=== PATIENT | male | born 1955 | race Two or more races ===

== ENCOUNTER 2016-10-09 17:32 | Emergency (ER) | payer SELFPAY ==
[~2016-10-09] VITALS: Ht 177.8 cm; Wt 99.8 kg
[2016-10-09 18:02] VITALS: BP 201/101
== END 2016-10-10 02:35 | disposition left against medical advice (07) ==
LOC: ER 17:38
DX: M54.2 Cervicalgia (principal); M54.9 Dorsalgia, unspecified; Z53.21 Procedure and treatment not carried out due to patient leaving prior to being seen by health care provider
CPT/HCPCS: 93005

== ENCOUNTER 2021-10-03 11:20 | Inpatient (IN) | payer OTHER ==
[~2021-10-03] VITALS: Ht 175.3 cm; Wt 97.0 kg
[2021-10-03] MEDS ORDERED: SODIUM CHLORIDE 0.9% 1,000 ML IV ONE (11:45)
[2021-10-03 12:18] LABS: Basophils # (auto) 0 10 ^3/uL (0-0.2); Basophils % (auto) 0.9 % (0.0-2.0); Eosinophils # (auto) 0.2 10 ^3/uL (0-0.8); Eosinophils % (auto) 2.9 % (0.0-7.0); Hematocrit 39.5 % (41.0-53.0); Hemoglobin 12.2 g/dL (13.5-17.5); Lymphocytes # (auto) 0.4 10 ^3/uL (0.4-5.4); Lymphocytes % (auto) 6.9 % (10.0-50.0); Mean Corpuscular Hemoglobin 25.5 pg (28.0-32.0); Mean Corpuscular Hgb Conc. 30.9 g/dL (32.0-36.0); Mean Corpuscular Volume 82.5 fL (80.0-100.0); Monocytes # (auto) 0.7 10 ^3/uL (0-1.3); Monocytes % (auto) 11.3 % (0.0-12.0); Neutrophils # (auto) 4.5 10 ^3/uL (1.6-8.6); Red Blood Cells 4.79 10^6/uL (4.5-5.90); Red Cell Distribution Width 19.3 % (11.8-14.3); White Blood Cell 5.8 10^3/uL (4.4-10.8)
[2021-10-03 12:35] LABS: Albumin 2.8 g/dL (3.4-5.0); Calcium 8.3 mg/dL (8.5-10.1); Potassium 4.2 mmol/L (3.5-5.1)
[2021-10-03 12:40] LABS: BUN/Creatinine Ratio 13.8; Bilirubin, Total 0.6 mg/dL (0.2-1.0); Total Protein 7.6 g/dL (6.4-8.2)
[2021-10-03] MEDS ORDERED: SPIRONOLACTONE 25 MG TAB PO ONE (12:45)
[2021-10-03] MEDS ORDERED: FUROSEMIDE 40 MG/4 ML VIAL IV ONE ×2 (12:45→17:30)
[2021-10-03 14:22] LABS: INR 1.26 (0.9-1.15); Partial Thromboplastin Time 30.7 sec (23.6-33.0)
[2021-10-03] MEDS ORDERED: ACETAMINOPHEN 325 MG TAB PO PRN (17:30)
[2021-10-03] MEDS ORDERED: MORPHINE SULFATE INJECTION 2 MG/ML SYRG IV PRN (17:30)
[2021-10-03] MEDS ORDERED: NITROGLYCERIN 0.4 MG SL TAB SL PRN (17:30)
[2021-10-03] MEDS: FUROSEMIDE 40 MG/4 ML VIAL IV SCH (18:00)
[2021-10-03 18:54] LABS: Urine Bacteria FEW /hpf (None Seen); Urine Blood 3+ /uL (Negative); Urine Mucus FEW (None Seen); Urine Specific Gravity 1.017 (1.001-1.035); Urine WBC 149 /hpf (0 - 3); Urine WBC Clumps PRESENT /hpf (None Seen)
[2021-10-03] MEDS: ENOXAPARIN SOD 40 MG/0.4 ML SYRINGE SC SCH (22:00)
[2021-10-03 23:06] VITALS: BP 131/84
[2021-10-04] VITALS (7 sets, daily range): BP systolic 124–139; BP diastolic 49–84
[2021-10-04] MEDS: FUROSEMIDE 40 MG/4 ML VIAL IV SCH (06:00)
[2021-10-04 07:26] LABS: Potassium 4.5 mmol/L (3.5-5.1)
[2021-10-04 07:34] LABS: Albumin 2.7 g/dL (3.4-5.0); Bilirubin, Total 0.6 mg/dL (0.2-1.0); Calcium 8.4 mg/dL (8.5-10.1); Total Protein 7.2 g/dL (6.4-8.2)
[2021-10-04 07:35] LABS: Basophils # (auto) 0 10 ^3/uL (0-0.2); Eosinophils # (auto) 0.1 10 ^3/uL (0-0.8); Hemoglobin 11.1 g/dL (13.5-17.5); Lymphocytes # (auto) 0.3 10 ^3/uL (0.4-5.4); Monocytes % (auto) 9.7 % (0.0-12.0); Neutrophils % (auto) 83.6 % (37.0-80.0); Nucleated Red Blood Cells % 0.1 %
[2021-10-04 07:37] LABS: Basophils % (auto) 0.3 % (0.0-2.0); Eosinophils % (auto) 1.3 % (0.0-7.0); Hematocrit 36.3 % (41.0-53.0); Lymphocytes % (auto) 5.1 % (10.0-50.0); Mean Corpuscular Hemoglobin 25.3 pg (28.0-32.0); Mean Corpuscular Hgb Conc. 30.7 g/dL (32.0-36.0); Mean Corpuscular Volume 82.5 fL (80.0-100.0); Monocytes # (auto) 0.7 10 ^3/uL (0-1.3); Neutrophils # (auto) 5.6 10 ^3/uL (1.6-8.6); White Blood Cell 6.7 10^3/uL (4.4-10.8)
[2021-10-04] MEDS ORDERED: DEXTROSE (50%) 50ML SYRG IV PRN (08:30)
[2021-10-04] MEDS: METOPROLOL SUCCINATE XL 50 MG TAB PO SCH (10:00)
[2021-10-04] MEDS: ALLOPURINOL 100 MG TAB PO SCH (10:00)
[2021-10-04] MEDS ORDERED: amLODIPine BESYLATE 5 MG TAB PO SCH (10:00)
[2021-10-04] MEDS: ENOXAPARIN SOD 40 MG/0.4 ML SYRINGE SC SCH (10:00)
[2021-10-04] MEDS: InsuLIN REG 1unit/0.01ml Soln (100units/ml) SC SCH ×3 (11:30→22:00)
[2021-10-04] MEDS: ACCU-CHEK COMFORT CURVE STRIP VI SCH ×3 (11:30→22:00)
[2021-10-04] MEDS: FUROSEMIDE 100 MG/10ML VIAL IV SCH ×2 (11:49→18:00)
[2021-10-04] MEDS: HYDROcodone-ACET 5/325MG TAB PO PRN ×2 (18:25→20:04)
[2021-10-04] MEDS: POTASSIUM CHL 10 Meq TABLET PO SCH (22:00)
[2021-10-04] MEDS: ATORVASTATIN 20 MG TAB PO SCH (22:00)
[2021-10-04] MEDS ORDERED: INFLUENZA QUAD 2021-2022 0.5 ML SYRG IM ONE (23:00)
[2021-10-04] MEDS ORDERED: METO-6 PO (23:07)
[2021-10-04] MEDS ORDERED: DORZ2SOL18 EACHEYE (23:07)
[2021-10-04] MEDS ORDERED: HYDR50TA69 PO (23:07)
[2021-10-04] MEDS ORDERED: SODI650T PO (23:07)
[2021-10-04] MEDS ORDERED: TRAM50TA2 PO (23:07)
[2021-10-04] MEDS ORDERED: FURO40TA4 PO (23:07)
[2021-10-04] MEDS ORDERED: CHOL20007 PO (23:07)
[2021-10-04] MEDS ORDERED: ATOR20TA50 PO (23:07)
[2021-10-04] MEDS ORDERED: ASPI1TAB20 PO (23:07)
[2021-10-04] MEDS ORDERED: ALLO100T PO (23:07)
[2021-10-04] MEDS ORDERED: BRIM0.2S17 EACHEYE (23:07)
[2021-10-04] MEDS ORDERED: POM (23:07)
[2021-10-04] MEDS ORDERED: LEVO25TA6 PO (23:07)
[2021-10-04] MEDS ORDERED: PATI1POW PO (23:07)
[2021-10-04] MEDS ORDERED: AMLO-489 PO (23:07)
[2021-10-04] MEDS ORDERED: INSUINJ2 SC (23:07)
[2021-10-05] VITALS: BP 132/43
[2021-10-05 04:00] VITALS: BP 136/70
[2021-10-05] MEDS: HYDROcodone-ACET 5/325MG TAB PO PRN ×3 (05:00→18:58)
[2021-10-05 05:49] LABS: Calcium 8.5 mg/dL (8.5-10.1); Potassium 4.5 mmol/L (3.5-5.1)
[2021-10-05] MEDS: FUROSEMIDE 100 MG/10ML VIAL IV SCH ×4 (06:13→18:00)
[2021-10-05] MEDS: InsuLIN REG 1unit/0.01ml Soln (100units/ml) SC SCH ×4 (07:12→22:00)
[2021-10-05] MEDS: LEVOTHYROXINE SODIUM 25 MCG TAB PO SCH (07:14)
[2021-10-05] MEDS: ACCU-CHEK COMFORT CURVE STRIP VI SCH ×4 (07:15→22:00)
[2021-10-05 08:00] VITALS: BP_SYST 132; BP_DIAS 43; BP_DIAS 68
[2021-10-05] MEDS: ENOXAPARIN SOD 30 MG/0.3 ML SYRINGE SC SCH (10:00)
[2021-10-05] MEDS: POTASSIUM CHL 10 Meq TABLET PO SCH ×2 (10:00→22:00)
[2021-10-05] MEDS: amLODIPine BESYLATE 5 MG TAB PO SCH (10:00)
[2021-10-05] MEDS: METOPROLOL SUCCINATE XL 50 MG TAB PO SCH (10:00)
[2021-10-05] MEDS: ALLOPURINOL 100 MG TAB PO SCH (10:00)
[2021-10-05 13:00] VITALS: BP 139/68
[2021-10-05 16:00] VITALS: BP 122/73
[2021-10-05] MEDS: ATORVASTATIN 20 MG TAB PO SCH (22:00)
[2021-10-06] VITALS (7 sets, daily range): BP systolic 130–154; BP diastolic 43–90
[2021-10-06] MEDS: HYDROcodone-ACET 5/325MG TAB PO PRN ×4 (01:00→20:00)
[2021-10-06] MEDS: FUROSEMIDE 100 MG/10ML VIAL IV SCH ×5 (06:06→23:58)
[2021-10-06] MEDS: BISACODYL 5 MG EC TAB PO PRN (06:07)
[2021-10-06 06:27] LABS: BUN/Creatinine Ratio 18.2; Calcium 8.9 mg/dL (8.5-10.1); Potassium 4.5 mmol/L (3.5-5.1)
[2021-10-06] MEDS: ACCU-CHEK COMFORT CURVE STRIP VI SCH ×4 (06:52→21:52)
[2021-10-06] MEDS: InsuLIN REG 1unit/0.01ml Soln (100units/ml) SC SCH ×4 (06:53→22:08)
[2021-10-06] MEDS: LEVOTHYROXINE SODIUM 25 MCG TAB PO SCH ×2 (06:56)
[2021-10-06] MEDS: POTASSIUM CHL 10 Meq TABLET PO SCH ×2 (09:09→21:52)
[2021-10-06] MEDS: amLODIPine BESYLATE 5 MG TAB PO SCH (09:09)
[2021-10-06] MEDS: ENOXAPARIN SOD 30 MG/0.3 ML SYRINGE SC SCH (09:10)
[2021-10-06] MEDS: ALLOPURINOL 100 MG TAB PO SCH (09:10)
[2021-10-06] MEDS: METOPROLOL SUCCINATE XL 50 MG TAB PO SCH (09:10)
[2021-10-06] MEDS: ATORVASTATIN 20 MG TAB PO SCH (21:52)
[2021-10-07] MEDS: HYDROcodone-ACET 5/325MG TAB PO PRN ×2 (02:07→10:02)
[2021-10-07 05:00] VITALS: BP 140/52
[2021-10-07] MEDS: FUROSEMIDE 100 MG/10ML VIAL IV SCH ×3 (06:10→17:09)
[2021-10-07] MEDS: LEVOTHYROXINE SODIUM 25 MCG TAB PO SCH (06:10)
[2021-10-07] MEDS: ACCU-CHEK COMFORT CURVE STRIP VI SCH ×4 (06:10→22:18)
[2021-10-07] MEDS: InsuLIN REG 1unit/0.01ml Soln (100units/ml) SC SCH ×4 (06:28→22:29)
[2021-10-07 06:45] LABS: Calcium 8.6 mg/dL (8.5-10.1); Potassium 4.3 mmol/L (3.5-5.1)
[2021-10-07 06:47] LABS: BUN/Creatinine Ratio 20.4
[2021-10-07 08:00] VITALS: BP 134/45
[2021-10-07 09:00] VITALS: BP 134/45
[2021-10-07] MEDS: POTASSIUM CHL 10 Meq TABLET PO SCH ×2 (09:58→22:30)
[2021-10-07] MEDS: amLODIPine BESYLATE 5 MG TAB PO SCH (09:58)
[2021-10-07] MEDS: metOLazone 5 MG TAB PO SCH (09:59)
[2021-10-07] MEDS: METOPROLOL SUCCINATE XL 50 MG TAB PO SCH (09:59)
[2021-10-07] MEDS: ALLOPURINOL 100 MG TAB PO SCH (09:59)
[2021-10-07] MEDS: ENOXAPARIN SOD 30 MG/0.3 ML SYRINGE SC SCH (09:59)
[2021-10-07 13:00] VITALS: BP 118/79
[2021-10-07] MEDS: OXYCODONE W/ ACETAMINOPHEN 5/325MG TABLET PO PRN ×2 (15:44→22:31)
[2021-10-07 22:00] VITALS: BP 139/63
[2021-10-07] MEDS: ATORVASTATIN 20 MG TAB PO SCH (22:30)
[2021-10-07] MEDS: SENNA 8.6 MG TAB PO SCH (22:30)
[2021-10-08] MEDS: FUROSEMIDE 100 MG/10ML VIAL IV SCH ×4 (00:19→17:02)
[2021-10-08] MEDS: OXYCODONE W/ ACETAMINOPHEN 5/325MG TABLET PO PRN ×3 (02:45→22:16)
[2021-10-08 05:46] LABS: Calcium 8.8 mg/dL (8.5-10.1)
[2021-10-08 05:49] LABS: BUN/Creatinine Ratio 21.7; Magnesium 2.4 mg/dL (1.6-2.6)
[2021-10-08 06:16] VITALS: BP 137/74
[2021-10-08] MEDS: ACCU-CHEK COMFORT CURVE STRIP VI SCH ×4 (06:26→22:05)
[2021-10-08] MEDS: InsuLIN REG 1unit/0.01ml Soln (100units/ml) SC SCH ×4 (06:26→22:12)
[2021-10-08] MEDS: LEVOTHYROXINE SODIUM 25 MCG TAB PO SCH (06:30)
[2021-10-08 08:00] VITALS: BP 136/62
[2021-10-08] MEDS: amLODIPine BESYLATE 5 MG TAB PO SCH (09:49)
[2021-10-08] MEDS: POTASSIUM CHL 10 Meq TABLET PO SCH ×2 (09:49→22:17)
[2021-10-08] MEDS: METOPROLOL SUCCINATE XL 50 MG TAB PO SCH (09:49)
[2021-10-08] MEDS: ALLOPURINOL 100 MG TAB PO SCH (09:50)
[2021-10-08] MEDS: ENOXAPARIN SOD 30 MG/0.3 ML SYRINGE SC SCH (09:50)
[2021-10-08] MEDS: metOLazone 5 MG TAB PO SCH (09:50)
[2021-10-08 16:00] VITALS: BP 157/75
[2021-10-08 21:53] VITALS: BP 132/66
[2021-10-08] MEDS: SENNA 8.6 MG TAB PO SCH (22:15)
[2021-10-08] MEDS: ATORVASTATIN 20 MG TAB PO SCH (22:16)
[2021-10-08] MEDS ORDERED: diphenhdrAMINE HCL 50 MG/1 ML VL IV PRN (23:45)
[2021-10-09] MEDS: FUROSEMIDE 100 MG/10ML VIAL IV SCH ×4 (00:25→18:20)
[2021-10-09 05:05] VITALS: BP 130/78
[2021-10-09 06:00] VITALS: BP 130/78
[2021-10-09] MEDS: ACCU-CHEK COMFORT CURVE STRIP VI SCH ×4 (06:34→23:00)
[2021-10-09] MEDS: InsuLIN REG 1unit/0.01ml Soln (100units/ml) SC SCH ×4 (06:34→23:03)
[2021-10-09] MEDS: LEVOTHYROXINE SODIUM 25 MCG TAB PO SCH (06:36)
[2021-10-09 08:00] VITALS: BP 145/57
[2021-10-09] MEDS: ENOXAPARIN SOD 30 MG/0.3 ML SYRINGE SC SCH (10:06)
[2021-10-09] MEDS: amLODIPine BESYLATE 5 MG TAB PO SCH (10:08)
[2021-10-09] MEDS: POTASSIUM CHL 10 Meq TABLET PO SCH ×2 (10:08→22:59)
[2021-10-09] MEDS: ALLOPURINOL 100 MG TAB PO SCH (10:09)
[2021-10-09] MEDS: METOPROLOL SUCCINATE XL 50 MG TAB PO SCH (10:09)
[2021-10-09] MEDS: metOLazone 5 MG TAB PO SCH (11:28)
[2021-10-09 12:00] VITALS: BP 148/86
[2021-10-09 16:00] VITALS: BP 148/63
[2021-10-09 19:34] LABS: Basophils # (auto) 0 10 ^3/uL (0-0.2); Basophils % (auto) 0.2 % (0.0-2.0); Eosinophils # (auto) 0.1 10 ^3/uL (0-0.8); Eosinophils % (auto) 2.1 % (0.0-7.0); Hematocrit 36.5 % (41.0-53.0); Hemoglobin 11.6 g/dL (13.5-17.5); Lymphocytes # (auto) 0.2 10 ^3/uL (0.4-5.4); Lymphocytes % (auto) 3.8 % (10.0-50.0); Mean Corpuscular Hemoglobin 25.4 pg (28.0-32.0); Mean Corpuscular Hgb Conc. 31.8 g/dL (32.0-36.0); Mean Corpuscular Volume 79.8 fL (80.0-100.0); Monocytes # (auto) 0.5 10 ^3/uL (0-1.3); Monocytes % (auto) 9.1 % (0.0-12.0); Neutrophils # (auto) 4.3 10 ^3/uL (1.6-8.6); Neutrophils % (auto) 84.8 % (37.0-80.0); Red Blood Cells 4.57 10^6/uL (4.5-5.90); Red Cell Distribution Width 19.3 % (11.8-14.3)
[2021-10-09 19:52] LABS: Anion Gap 7 (5-15); BUN/Creatinine Ratio 23.8; Blood Urea Nitrogen 58 mg/dL (7-18); Calcium 8.7 mg/dL (8.5-10.1); Carbon Dioxide 30 mmol/L (21-32); Chloride 94 mmol/L (98-107); GFR African American 34 mL/min; GFR Non-African American 28 mL/min; Glucose 199 mg/dL (74-106); Potassium 3.9 mmol/L (3.5-5.1); Sodium 131 mmol/L (136-145)
[2021-10-09 22:00] VITALS: BP 148/56
[2021-10-09] MEDS: SENNA 8.6 MG TAB PO SCH (22:59)
[2021-10-09] MEDS: ATORVASTATIN 20 MG TAB PO SCH (22:59)
[2021-10-09] MEDS: THROAT LOZENGES(CEPASTAT) MT PRN (23:00)
[2021-10-09] MEDS: OXYCODONE W/ ACETAMINOPHEN 5/325MG TABLET PO PRN (23:09)
[2021-10-10] MEDS: FUROSEMIDE 100 MG/10ML VIAL IV SCH ×3 (00:13→19:14)
[2021-10-10] MEDS: THROAT LOZENGES(CEPASTAT) MT PRN (02:31)
[2021-10-10 06:00] VITALS: BP 140/53
[2021-10-10] MEDS: ACCU-CHEK COMFORT CURVE STRIP VI SCH ×4 (06:44→21:56)
[2021-10-10] MEDS: InsuLIN REG 1unit/0.01ml Soln (100units/ml) SC SCH ×4 (06:49→22:34)
[2021-10-10] MEDS: LEVOTHYROXINE SODIUM 25 MCG TAB PO SCH (06:52)
[2021-10-10 08:00] VITALS: BP 139/43
[2021-10-10] MEDS: metOLazone 5 MG TAB PO SCH (10:00)
[2021-10-10] MEDS: ALLOPURINOL 100 MG TAB PO SCH (10:46)
[2021-10-10] MEDS: METOPROLOL SUCCINATE XL 50 MG TAB PO SCH (10:49)
[2021-10-10] MEDS: amLODIPine BESYLATE 5 MG TAB PO SCH (10:49)
[2021-10-10] MEDS: POTASSIUM CHL 10 Meq TABLET PO SCH ×2 (10:50→21:55)
[2021-10-10] MEDS: ENOXAPARIN SOD 30 MG/0.3 ML SYRINGE SC SCH (10:51)
[2021-10-10 13:00] VITALS: BP 142/55
[2021-10-10] MEDS ORDERED: METO5TAB5 PO (13:45)
[2021-10-10] MEDS ORDERED: POTA-167 PO (13:45)
[2021-10-10] MEDS ORDERED: AML5T PO (13:45)
[2021-10-10] MEDS ORDERED: FURO40TA4 PO (13:45)
[2021-10-10 16:00] VITALS: BP 138/59
[2021-10-10] MEDS: SENNA 8.6 MG TAB PO SCH (21:56)
[2021-10-10] MEDS: ATORVASTATIN 20 MG TAB PO SCH (21:56)
[2021-10-10 22:00] VITALS: BP 147/64
[2021-10-11] VITALS (7 sets, daily range): BP systolic 129–152; BP diastolic 46–57
[2021-10-11 02:38] LABS: Protein, Urine 70.4 mg/dL (0.0-11.9)
[2021-10-11] MEDS: FUROSEMIDE 100 MG/10ML VIAL IV SCH ×2 (05:14→18:29)
[2021-10-11] MEDS: LEVOTHYROXINE SODIUM 25 MCG TAB PO SCH (06:14)
[2021-10-11] MEDS: ACCU-CHEK COMFORT CURVE STRIP VI SCH ×4 (06:14→21:55)
[2021-10-11] MEDS: InsuLIN REG 1unit/0.01ml Soln (100units/ml) SC SCH ×4 (06:17→22:02)
[2021-10-11] MEDS: POTASSIUM CHL 10 Meq TABLET PO SCH ×2 (10:00→21:54)
[2021-10-11] MEDS: ENOXAPARIN SOD 30 MG/0.3 ML SYRINGE SC SCH (10:00)
[2021-10-11] MEDS: metOLazone 5 MG TAB PO SCH (10:00)
[2021-10-11] MEDS: METOPROLOL SUCCINATE XL 50 MG TAB PO SCH (10:00)
[2021-10-11] MEDS: ALLOPURINOL 100 MG TAB PO SCH (10:00)
[2021-10-11] MEDS: amLODIPine BESYLATE 5 MG TAB PO SCH (10:00)
[2021-10-11] MEDS: THROAT LOZENGES(CEPASTAT) MT PRN (18:35)
[2021-10-11 19:58] LABS: INR 1.17 (0.9-1.15); Partial Thromboplastin Time 31.8 sec (23.6-33.0)
[2021-10-11] MEDS: ATORVASTATIN 20 MG TAB PO SCH (21:55)
[2021-10-11] MEDS: SENNA 8.6 MG TAB PO SCH (21:55)
[2021-10-11] MEDS: OXYCODONE W/ ACETAMINOPHEN 5/325MG TABLET PO PRN (22:47)
[2021-10-12] VITALS (8 sets, daily range): BP systolic 125–142; BP diastolic 61–87
[2021-10-12] MEDS: ACCU-CHEK COMFORT CURVE STRIP VI SCH ×4 (06:06→21:42)
[2021-10-12] MEDS: InsuLIN REG 1unit/0.01ml Soln (100units/ml) SC SCH ×4 (06:07→21:57)
[2021-10-12] MEDS: FUROSEMIDE 100 MG/10ML VIAL IV SCH ×2 (06:33→18:40)
[2021-10-12] MEDS: LEVOTHYROXINE SODIUM 25 MCG TAB PO SCH (06:33)
[2021-10-12] MEDS: ENOXAPARIN SOD 30 MG/0.3 ML SYRINGE SC SCH (10:00)
[2021-10-12] MEDS: OXYCODONE W/ ACETAMINOPHEN 5/325MG TABLET PO PRN ×4 (10:53→22:02)
[2021-10-12] MEDS: metOLazone 5 MG TAB PO SCH (10:55)
[2021-10-12] MEDS: POTASSIUM CHL 10 Meq TABLET PO SCH ×2 (10:55→21:42)
[2021-10-12] MEDS: METOPROLOL SUCCINATE XL 50 MG TAB PO SCH (10:56)
[2021-10-12] MEDS: amLODIPine BESYLATE 5 MG TAB PO SCH (10:57)
[2021-10-12] MEDS: ALLOPURINOL 100 MG TAB PO SCH (10:58)
[2021-10-12] MEDS ORDERED: ALBUTEROL SULF 2.5 MG/0.5ML(0.5%) NEB SOLN NEB ONE (12:30)
[2021-10-12] MEDS ORDERED: IPRATROPIUM BROM 0.5 MG/2.5ML INH SOL NEB ONE (12:30)
[2021-10-12 15:40] LABS: Basophils # (auto) 0 10 ^3/uL (0-0.2); Eosinophils # (auto) 0.3 10 ^3/uL (0-0.8); Hematocrit 33.8 % (41.0-53.0); Monocytes # (auto) 0.5 10 ^3/uL (0-1.3); Red Cell Distribution Width 18.9 % (11.8-14.3); White Blood Cell 5.2 10^3/uL (4.4-10.8)
[2021-10-12 15:42] LABS: Basophils % (auto) 0.6 % (0.0-2.0); Eosinophils % (auto) 6.7 % (0.0-7.0); Hemoglobin 10.9 g/dL (13.5-17.5); Lymphocytes # (auto) 0.3 10 ^3/uL (0.4-5.4); Lymphocytes % (auto) 6.4 % (10.0-50.0); Mean Corpuscular Hemoglobin 25.9 pg (28.0-32.0); Mean Corpuscular Hgb Conc. 32.1 g/dL (32.0-36.0); Mean Corpuscular Volume 80.5 fL (80.0-100.0); Monocytes % (auto) 9.6 % (0.0-12.0); Neutrophils % (auto) 76.7 % (37.0-80.0); Nucleated Red Blood Cells % 0.1 %
[2021-10-12 15:51] LABS: BUN/Creatinine Ratio 29.2; Calcium 8.8 mg/dL (8.5-10.1); Potassium 3.8 mmol/L (3.5-5.1)
[2021-10-12] MEDS: ATORVASTATIN 20 MG TAB PO SCH (21:42)
[2021-10-12] MEDS: SENNA 8.6 MG TAB PO SCH (21:42)
[2021-10-13 06:00] VITALS: BP 116/53
[2021-10-13] MEDS: LEVOTHYROXINE SODIUM 25 MCG TAB PO SCH (06:20)
[2021-10-13] MEDS: ACCU-CHEK COMFORT CURVE STRIP VI SCH ×4 (06:20→21:46)
[2021-10-13] MEDS: FUROSEMIDE 100 MG/10ML VIAL IV SCH (06:38)
[2021-10-13] MEDS: InsuLIN REG 1unit/0.01ml Soln (100units/ml) SC SCH ×4 (06:38→21:44)
[2021-10-13 08:00] VITALS: BP 143/55
[2021-10-13] MEDS: POTASSIUM CHL 10 Meq TABLET PO SCH ×2 (08:51→21:39)
[2021-10-13] MEDS: METOPROLOL SUCCINATE XL 50 MG TAB PO SCH (08:52)
[2021-10-13] MEDS: amLODIPine BESYLATE 5 MG TAB PO SCH (08:52)
[2021-10-13] MEDS: ALLOPURINOL 100 MG TAB PO SCH (08:52)
[2021-10-13] MEDS: metOLazone 5 MG TAB PO SCH (08:53)
[2021-10-13] MEDS: ENOXAPARIN SOD 30 MG/0.3 ML SYRINGE SC SCH (08:53)
[2021-10-13] MEDS: THROAT LOZENGES(CEPASTAT) MT PRN (10:31)
[2021-10-13 12:48] VITALS: BP 132/51
[2021-10-13 16:23] VITALS: BP 139/63
[2021-10-13] MEDS: FUROSEMIDE 40 MG TAB PO SCH (17:35)
[2021-10-13] MEDS: OXYCODONE W/ ACETAMINOPHEN 5/325MG TABLET PO PRN (17:42)
[2021-10-13 20:10] LABS: Basophils # (auto) 0 10 ^3/uL (0-0.2); Basophils % (auto) 0.7 % (0.0-2.0); Eosinophils # (auto) 0.5 10 ^3/uL (0-0.8); Eosinophils % (auto) 8.7 % (0.0-7.0); Hematocrit 32.4 % (41.0-53.0); Hemoglobin 10.4 g/dL (13.5-17.5); Lymphocytes # (auto) 0.4 10 ^3/uL (0.4-5.4); Lymphocytes % (auto) 6.9 % (10.0-50.0); Mean Corpuscular Hemoglobin 25.7 pg (28.0-32.0); Mean Corpuscular Hgb Conc. 32.1 g/dL (32.0-36.0); Mean Corpuscular Volume 79.9 fL (80.0-100.0); Monocytes # (auto) 0.5 10 ^3/uL (0-1.3); Monocytes % (auto) 8.4 % (0.0-12.0); Neutrophils # (auto) 4.3 10 ^3/uL (1.6-8.6); Neutrophils % (auto) 75.3 % (37.0-80.0); Red Blood Cells 4.06 10^6/uL (4.5-5.90); Red Cell Distribution Width 19.2 % (11.8-14.3); White Blood Cell 5.6 10^3/uL (4.4-10.8)
[2021-10-13 20:23] LABS: BUN/Creatinine Ratio 32.5; Calcium 8.7 mg/dL (8.5-10.1)
[2021-10-13] MEDS: ATORVASTATIN 20 MG TAB PO SCH (21:40)
[2021-10-13] MEDS: SENNA 8.6 MG TAB PO SCH (21:41)
[2021-10-13 22:00] VITALS: BP 134/50
[2021-10-14 05:50] VITALS: BP 137/65
[2021-10-14 06:05] LABS: Basophils # (auto) 0 10 ^3/uL (0-0.2); Basophils % (auto) 0.5 % (0.0-2.0); Hemoglobin 10.3 g/dL (13.5-17.5)
[2021-10-14 06:07] LABS: Eosinophils # (auto) 0.6 10 ^3/uL (0-0.8); Eosinophils % (auto) 9.8 % (0.0-7.0); Hematocrit 31.8 % (41.0-53.0); Lymphocytes # (auto) 0.5 10 ^3/uL (0.4-5.4); Lymphocytes % (auto) 8.4 % (10.0-50.0); Mean Corpuscular Hgb Conc. 32.5 g/dL (32.0-36.0); Mean Corpuscular Volume 80.1 fL (80.0-100.0); Monocytes # (auto) 0.5 10 ^3/uL (0-1.3); Monocytes % (auto) 9.4 % (0.0-12.0); Neutrophils # (auto) 4.1 10 ^3/uL (1.6-8.6); Neutrophils % (auto) 71.9 % (37.0-80.0); Red Blood Cells 3.96 10^6/uL (4.5-5.90); Red Cell Distribution Width 19.2 % (11.8-14.3); White Blood Cell 5.6 10^3/uL (4.4-10.8)
[2021-10-14 06:34] LABS: Calcium 8.8 mg/dL (8.5-10.1); Potassium 3.3 mmol/L (3.5-5.1)
[2021-10-14 06:36] LABS: BUN/Creatinine Ratio 34.4
[2021-10-14] MEDS: OXYCODONE W/ ACETAMINOPHEN 5/325MG TABLET PO PRN ×2 (06:48→12:51)
[2021-10-14] MEDS: FUROSEMIDE 40 MG TAB PO SCH ×2 (06:49→18:09)
[2021-10-14] MEDS: LEVOTHYROXINE SODIUM 25 MCG TAB PO SCH (06:50)
[2021-10-14] MEDS: InsuLIN REG 1unit/0.01ml Soln (100units/ml) SC SCH ×4 (06:53→22:37)
[2021-10-14] MEDS: ACCU-CHEK COMFORT CURVE STRIP VI SCH ×4 (06:54→22:38)
[2021-10-14] MEDS ORDERED: methylPREDNISolone SOD SUCC 125 MG/2 ML VL IV ONE (07:30)
[2021-10-14] MEDS ORDERED: HEPARIN SODIUM (PORCINE) 5000 UNITS/ML 1ML VIAL IV ONE (07:30)
[2021-10-14 08:00] VITALS: BP 134/71
[2021-10-14] MEDS: POTASSIUM CHL 10MEQ/50ML 50 ML IV SCH ×2 (08:16→10:20)
[2021-10-14] MEDS ORDERED: HEPARIN SODIUM (PORCINE) 5000 UNITS/ML 1ML VIAL SC SCH (10:00)
[2021-10-14] MEDS: amLODIPine BESYLATE 5 MG TAB PO SCH (10:20)
[2021-10-14] MEDS: POTASSIUM CHL 10 Meq TABLET PO SCH ×2 (10:20→22:34)
[2021-10-14] MEDS: METOPROLOL SUCCINATE XL 50 MG TAB PO SCH (10:21)
[2021-10-14] MEDS: ALLOPURINOL 100 MG TAB PO SCH (10:21)
[2021-10-14] MEDS: metOLazone 5 MG TAB PO SCH (10:21)
[2021-10-14] MEDS ORDERED: methylPREDNISolone SOD SUCC 40 MG/ML VL IV SCH (14:00)
[2021-10-14 16:00] VITALS: BP 143/56
[2021-10-14] MEDS ORDERED: POTASSIUM EFFERVESENT TAB 25 MEQ PO ONE (16:45)
[2021-10-14] MEDS: INSULIN LANTUS (GLARGINE) 1 /0.01ml (100units/ml) SC SCH (18:11)
[2021-10-14] MEDS: ALBUTEROL SULF 2.5 MG/0.5ML(0.5%) NEB SOLN NEB SCH (19:12)
[2021-10-14] MEDS: IPRATROPIUM BROM 0.5 MG/2.5ML INH SOL NEB SCH (19:12)
[2021-10-14 21:35] VITALS: BP 144/67
[2021-10-14] MEDS ORDERED: INSULIN LANTUS (GLARGINE) 1 /0.01ml (100units/ml) SC ONE (22:15)
[2021-10-14] MEDS: SENNA 8.6 MG TAB PO SCH (22:35)
[2021-10-15] VITALS (28 sets, daily range): BP systolic 116–151; BP diastolic 34–67
[2021-10-15] MEDS: ATORVASTATIN 20 MG TAB PO SCH ×2 (00:17→21:09)
[2021-10-15] MEDS: OXYCODONE W/ ACETAMINOPHEN 5/325MG TABLET PO PRN (00:18)
[2021-10-15] MEDS: methylPREDNISolone SOD SUCC 40 MG/ML VL IV SCH ×2 (01:27→14:11)
[2021-10-15 04:28] LABS: Basophils # (auto) 0 10 ^3/uL (0-0.2); Basophils % (auto) 0.4 % (0.0-2.0); Eosinophils # (auto) 0 10 ^3/uL (0-0.8); Eosinophils % (auto) 0.1 % (0.0-7.0); Hematocrit 33.6 % (41.0-53.0); Hemoglobin 10.9 g/dL (13.5-17.5); Lymphocytes # (auto) 0.1 10 ^3/uL (0.4-5.4); Lymphocytes % (auto) 3.4 % (10.0-50.0); Mean Corpuscular Hemoglobin 25.8 pg (28.0-32.0); Mean Corpuscular Hgb Conc. 32.3 g/dL (32.0-36.0); Mean Corpuscular Volume 79.8 fL (80.0-100.0); Monocytes # (auto) 0.1 10 ^3/uL (0-1.3); Monocytes % (auto) 3.2 % (0.0-12.0); Neutrophils # (auto) 3.9 10 ^3/uL (1.6-8.6); Neutrophils % (auto) 92.9 % (37.0-80.0); Red Blood Cells 4.21 10^6/uL (4.5-5.90); Red Cell Distribution Width 18.9 % (11.8-14.3); White Blood Cell 4.2 10^3/uL (4.4-10.8)
[2021-10-15 04:43] LABS: INR 1.16 (0.9-1.15); Partial Thromboplastin Time 31.5 sec (23.6-33.0)
[2021-10-15 04:51] LABS: Calcium 8.7 mg/dL (8.5-10.1); Potassium 4.2 mmol/L (3.5-5.1)
[2021-10-15 05:33] LABS: BUN/Creatinine Ratio 32.9
[2021-10-15] MEDS ORDERED: DEXTROSE (50%) 50ML SYRG IV PRN (05:45)
[2021-10-15] MEDS: ACCU-CHEK COMFORT CURVE STRIP VI SCH ×4 (06:23→21:09)
[2021-10-15] MEDS: LEVOTHYROXINE SODIUM 25 MCG TAB PO SCH (06:24)
[2021-10-15] MEDS: FUROSEMIDE 40 MG TAB PO SCH ×2 (06:26→17:46)
[2021-10-15] MEDS: InsuLIN REG 1unit/0.01ml Soln (100units/ml) SC SCH ×5 (06:29→22:00)
[2021-10-15] MEDS: BISACODYL 5 MG EC TAB PO PRN (06:42)
[2021-10-15] MEDS: IPRATROPIUM BROM 0.5 MG/2.5ML INH SOL NEB SCH ×3 (08:08→19:33)
[2021-10-15] MEDS: ALBUTEROL SULF 2.5 MG/0.5ML(0.5%) NEB SOLN NEB SCH ×3 (08:08→19:33)
[2021-10-15] MEDS: amLODIPine BESYLATE 5 MG TAB PO SCH (10:00)
[2021-10-15] MEDS: POTASSIUM CHL 10 Meq TABLET PO SCH ×2 (10:08→21:08)
[2021-10-15] MEDS: INSULIN LANTUS (GLARGINE) 1 /0.01ml (100units/ml) SC SCH (10:10)
[2021-10-15] MEDS: ALLOPURINOL 100 MG TAB PO SCH (10:10)
[2021-10-15] MEDS: metOLazone 5 MG TAB PO SCH (10:10)
[2021-10-15] MEDS: METOPROLOL SUCCINATE XL 50 MG TAB PO SCH (10:10)
[2021-10-15] MEDS: SENNA 8.6 MG TAB PO SCH (21:09)
[2021-10-16] VITALS (21 sets, daily range): BP systolic 112–142; BP diastolic 35–62
[2021-10-16 04:01] LABS: Basophils # (auto) 0 10 ^3/uL (0-0.2); Basophils % (auto) 0.2 % (0.0-2.0); Eosinophils # (auto) 0 10 ^3/uL (0-0.8); Hematocrit 31.4 % (41.0-53.0); Hemoglobin 10.1 g/dL (13.5-17.5); Lymphocytes # (auto) 0.2 10 ^3/uL (0.4-5.4); Lymphocytes % (auto) 2.7 % (10.0-50.0); Mean Corpuscular Hemoglobin 25.4 pg (28.0-32.0); Mean Corpuscular Hgb Conc. 32.3 g/dL (32.0-36.0); Mean Corpuscular Volume 78.8 fL (80.0-100.0); Monocytes # (auto) 0.4 10 ^3/uL (0-1.3); Monocytes % (auto) 5.3 % (0.0-12.0); Neutrophils # (auto) 7.7 10 ^3/uL (1.6-8.6); Neutrophils % (auto) 91.8 % (37.0-80.0); Red Blood Cells 3.99 10^6/uL (4.5-5.90); Red Cell Distribution Width 18.8 % (11.8-14.3); White Blood Cell 8.4 10^3/uL (4.4-10.8)
[2021-10-16 04:20] LABS: Calcium 8.7 mg/dL (8.5-10.1)
[2021-10-16 04:23] LABS: BUN/Creatinine Ratio 39.4
[2021-10-16] MEDS: ACCU-CHEK COMFORT CURVE STRIP VI SCH ×4 (05:31→21:48)
[2021-10-16] MEDS: FUROSEMIDE 40 MG TAB PO SCH (06:00)
[2021-10-16] MEDS: LEVOTHYROXINE SODIUM 25 MCG TAB PO SCH (07:00)
[2021-10-16] MEDS: ALBUTEROL SULF 2.5 MG/0.5ML(0.5%) NEB SOLN NEB SCH ×3 (09:39→17:48)
[2021-10-16] MEDS: IPRATROPIUM BROM 0.5 MG/2.5ML INH SOL NEB SCH ×3 (09:39→17:48)
[2021-10-16] MEDS: amLODIPine BESYLATE 5 MG TAB PO SCH (09:44)
[2021-10-16] MEDS: METOPROLOL SUCCINATE XL 50 MG TAB PO SCH (10:00)
[2021-10-16] MEDS: INSULIN LANTUS (GLARGINE) 1 /0.01ml (100units/ml) SC SCH (10:00)
[2021-10-16] MEDS: POTASSIUM CHL 10 Meq TABLET PO SCH ×2 (10:00→21:47)
[2021-10-16] MEDS ORDERED: methylPREDNISolone SOD SUCC 40 MG/ML VL IV SCH (10:00)
[2021-10-16] MEDS: ALLOPURINOL 100 MG TAB PO SCH (10:00)
[2021-10-16] MEDS ORDERED: acetaZOLAMIDE 250 MG TAB PO ONE (10:30)
[2021-10-16] MEDS: InsuLIN REG 1unit/0.01ml Soln (100units/ml) SC SCH ×3 (10:58→21:59)
[2021-10-16] MEDS: SENNA 8.6 MG TAB PO SCH (21:48)
[2021-10-16] MEDS: ATORVASTATIN 20 MG TAB PO SCH (21:48)
[2021-10-17 05:00] VITALS: BP 142/67
[2021-10-17 05:24] LABS: Basophils # (auto) 0 10 ^3/uL (0-0.2); Eosinophils # (auto) 0 10 ^3/uL (0-0.8); Lymphocytes # (auto) 0.3 10 ^3/uL (0.4-5.4); Monocytes # (auto) 0.6 10 ^3/uL (0-1.3); Neutrophils # (auto) 5.8 10 ^3/uL (1.6-8.6)
[2021-10-17 05:27] LABS: Basophils % (auto) 0.2 % (0.0-2.0); Hemoglobin 10.2 g/dL (13.5-17.5); Lymphocytes % (auto) 4.5 % (10.0-50.0); Mean Corpuscular Hemoglobin 25.8 pg (28.0-32.0); Mean Corpuscular Hgb Conc. 32.7 g/dL (32.0-36.0); Mean Corpuscular Volume 78.7 fL (80.0-100.0); Monocytes % (auto) 8.4 % (0.0-12.0); Neutrophils % (auto) 86.9 % (37.0-80.0); Red Blood Cells 3.94 10^6/uL (4.5-5.90); Red Cell Distribution Width 19.5 % (11.8-14.3); White Blood Cell 6.6 10^3/uL (4.4-10.8)
[2021-10-17 05:45] LABS: BUN/Creatinine Ratio 45.3; Calcium 8.7 mg/dL (8.5-10.1)
[2021-10-17] MEDS: LEVOTHYROXINE SODIUM 25 MCG TAB PO SCH (06:07)
[2021-10-17] MEDS: ACCU-CHEK COMFORT CURVE STRIP VI SCH ×4 (06:16→21:29)
[2021-10-17] MEDS: InsuLIN REG 1unit/0.01ml Soln (100units/ml) SC SCH ×4 (06:26→21:32)
[2021-10-17] MEDS: THROAT LOZENGES(CEPASTAT) MT PRN ×3 (06:26→21:30)
[2021-10-17] MEDS: ALBUTEROL SULF 2.5 MG/0.5ML(0.5%) NEB SOLN NEB SCH ×3 (06:45→18:42)
[2021-10-17] MEDS: IPRATROPIUM BROM 0.5 MG/2.5ML INH SOL NEB SCH ×3 (06:45→18:42)
[2021-10-17 09:00] VITALS: BP 135/49
[2021-10-17] MEDS: methylPREDNISolone SOD SUCC 40 MG/ML VL IV SCH (09:50)
[2021-10-17] MEDS: POTASSIUM CHL 10 Meq TABLET PO SCH ×2 (09:51→21:28)
[2021-10-17] MEDS: amLODIPine BESYLATE 5 MG TAB PO SCH (09:51)
[2021-10-17] MEDS: METOPROLOL SUCCINATE XL 50 MG TAB PO SCH (09:54)
[2021-10-17] MEDS: ALLOPURINOL 100 MG TAB PO SCH (09:55)
[2021-10-17] MEDS: INSULIN LANTUS (GLARGINE) 1 /0.01ml (100units/ml) SC SCH (09:55)
[2021-10-17] MEDS: FUROSEMIDE 40 MG TAB PO SCH (09:56)
[2021-10-17] MEDS ORDERED: acetaZOLAMIDE SODIUM 500 MG VL IV ONE (12:45)
[2021-10-17 13:00] VITALS: BP 135/55
[2021-10-17 17:00] VITALS: BP 135/53
[2021-10-17] MEDS: SENNA 8.6 MG TAB PO SCH (21:29)
[2021-10-17] MEDS: ATORVASTATIN 20 MG TAB PO SCH (21:29)
[2021-10-17 22:59] VITALS: BP 116/62
[2021-10-18 02:57] VITALS: BP 116/62
[2021-10-18 05:48] VITALS: BP 149/65
[2021-10-18 05:54] LABS: Basophils # (auto) 0 10 ^3/uL (0-0.2); Eosinophils # (auto) 0 10 ^3/uL (0-0.8); Lymphocytes # (auto) 0.4 10 ^3/uL (0.4-5.4)
[2021-10-18 05:57] LABS: Basophils % (auto) 0.1 % (0.0-2.0); Hematocrit 31.5 % (41.0-53.0); Hemoglobin 10.3 g/dL (13.5-17.5); Mean Corpuscular Hemoglobin 25.8 pg (28.0-32.0); Mean Corpuscular Hgb Conc. 32.7 g/dL (32.0-36.0); Monocytes % (auto) 14.4 % (0.0-12.0); Neutrophils # (auto) 5.6 10 ^3/uL (1.6-8.6); Neutrophils % (auto) 79.5 % (37.0-80.0); Red Blood Cells 3.98 10^6/uL (4.5-5.90)
[2021-10-18] MEDS: LEVOTHYROXINE SODIUM 25 MCG TAB PO SCH (05:58)
[2021-10-18] MEDS: ACCU-CHEK COMFORT CURVE STRIP VI SCH ×4 (05:58→21:35)
[2021-10-18] MEDS: InsuLIN REG 1unit/0.01ml Soln (100units/ml) SC SCH ×4 (06:01→21:40)
[2021-10-18] MEDS: IPRATROPIUM BROM 0.5 MG/2.5ML INH SOL NEB SCH ×3 (06:46→18:12)
[2021-10-18] MEDS: ALBUTEROL SULF 2.5 MG/0.5ML(0.5%) NEB SOLN NEB SCH ×3 (06:46→18:12)
[2021-10-18 08:52] VITALS: BP 147/57
[2021-10-18] MEDS: INSULIN LANTUS (GLARGINE) 1 /0.01ml (100units/ml) SC SCH (09:00)
[2021-10-18] MEDS: ALLOPURINOL 100 MG TAB PO SCH (09:04)
[2021-10-18] MEDS: methylPREDNISolone SOD SUCC 40 MG/ML VL IV SCH (09:04)
[2021-10-18] MEDS: FUROSEMIDE 40 MG TAB PO SCH (09:05)
[2021-10-18] MEDS: METOPROLOL SUCCINATE XL 50 MG TAB PO SCH (09:05)
[2021-10-18] MEDS: amLODIPine BESYLATE 5 MG TAB PO SCH (09:06)
[2021-10-18] MEDS: POTASSIUM CHL 10 Meq TABLET PO SCH ×2 (09:06→21:35)
[2021-10-18 13:00] VITALS: BP 142/58
[2021-10-18 15:35] LABS: BUN/Creatinine Ratio 47.1; Calcium 8.8 mg/dL (8.5-10.1); Potassium 3.7 mmol/L (3.5-5.1)
[2021-10-18 17:00] VITALS: BP 133/54
[2021-10-18] MEDS: SENNA 8.6 MG TAB PO SCH (21:35)
[2021-10-18] MEDS: ATORVASTATIN 20 MG TAB PO SCH (21:35)
[2021-10-18 22:00] VITALS: BP 128/52
[2021-10-19 05:00] VITALS: BP 144/56
[2021-10-19] MEDS: LEVOTHYROXINE SODIUM 25 MCG TAB PO SCH (05:55)
[2021-10-19] MEDS: ACCU-CHEK COMFORT CURVE STRIP VI SCH ×4 (05:55→22:15)
[2021-10-19] MEDS: InsuLIN REG 1unit/0.01ml Soln (100units/ml) SC SCH ×4 (05:59→22:17)
[2021-10-19] MEDS: IPRATROPIUM BROM 0.5 MG/2.5ML INH SOL NEB SCH ×3 (06:08→19:41)
[2021-10-19] MEDS: ALBUTEROL SULF 2.5 MG/0.5ML(0.5%) NEB SOLN NEB SCH ×3 (06:08→19:41)
[2021-10-19 06:35] LABS: Basophils # (auto) 0 10 ^3/uL (0-0.2); Basophils % (auto) 0.2 % (0.0-2.0); Eosinophils # (auto) 0.1 10 ^3/uL (0-0.8); Hemoglobin 10.2 g/dL (13.5-17.5); Monocytes # (auto) 1.1 10 ^3/uL (0-1.3)
[2021-10-19 06:39] LABS: Eosinophils % (auto) 1.1 % (0.0-7.0); Hematocrit 31.2 % (41.0-53.0); Lymphocytes # (auto) 0.5 10 ^3/uL (0.4-5.4); Lymphocytes % (auto) 6.6 % (10.0-50.0); Mean Corpuscular Hemoglobin 25.8 pg (28.0-32.0); Mean Corpuscular Hgb Conc. 32.6 g/dL (32.0-36.0); Mean Corpuscular Volume 79.1 fL (80.0-100.0); Monocytes % (auto) 13.2 % (0.0-12.0); Neutrophils # (auto) 6.5 10 ^3/uL (1.6-8.6); Neutrophils % (auto) 78.9 % (37.0-80.0); Red Blood Cells 3.94 10^6/uL (4.5-5.90); Red Cell Distribution Width 19.3 % (11.8-14.3); White Blood Cell 8.2 10^3/uL (4.4-10.8)
[2021-10-19 08:33] VITALS: BP 136/61
[2021-10-19] MEDS: POTASSIUM CHL 10 Meq TABLET PO SCH ×2 (09:28→22:11)
[2021-10-19] MEDS: methylPREDNISolone SOD SUCC 40 MG/ML VL IV SCH (09:28)
[2021-10-19] MEDS: FUROSEMIDE 40 MG TAB PO SCH (09:29)
[2021-10-19] MEDS: amLODIPine BESYLATE 5 MG TAB PO SCH (09:29)
[2021-10-19] MEDS: METOPROLOL SUCCINATE XL 50 MG TAB PO SCH (09:30)
[2021-10-19] MEDS: ALLOPURINOL 100 MG TAB PO SCH (09:30)
[2021-10-19] MEDS: INSULIN LANTUS (GLARGINE) 1 /0.01ml (100units/ml) SC SCH (09:32)
[2021-10-19 12:59] VITALS: BP 133/55
[2021-10-19 16:40] VITALS: BP 139/56
[2021-10-19 22:00] VITALS: BP 148/62
[2021-10-19] MEDS: ATORVASTATIN 20 MG TAB PO SCH (22:11)
[2021-10-19] MEDS: SENNA 8.6 MG TAB PO SCH (22:12)
[2021-10-20 05:00] VITALS: BP 114/54
[2021-10-20] MEDS: ALBUTEROL SULF 2.5 MG/0.5ML(0.5%) NEB SOLN NEB SCH ×3 (06:21→19:39)
[2021-10-20] MEDS: IPRATROPIUM BROM 0.5 MG/2.5ML INH SOL NEB SCH ×3 (06:21→19:39)
[2021-10-20 06:26] LABS: Basophils # (auto) 0 10 ^3/uL (0-0.2); Eosinophils # (auto) 0.5 10 ^3/uL (0-0.8); Lymphocytes # (auto) 0.5 10 ^3/uL (0.4-5.4); Red Cell Distribution Width 19.1 % (11.8-14.3)
[2021-10-20 06:30] LABS: Basophils % (auto) 0.1 % (0.0-2.0); Eosinophils % (auto) 5.6 % (0.0-7.0); Hematocrit 32.3 % (41.0-53.0); Hemoglobin 10.7 g/dL (13.5-17.5); Lymphocytes % (auto) 4.9 % (10.0-50.0); Mean Corpuscular Volume 78.5 fL (80.0-100.0); Monocytes % (auto) 9.9 % (0.0-12.0); Neutrophils # (auto) 7.6 10 ^3/uL (1.6-8.6); Neutrophils % (auto) 79.5 % (37.0-80.0); Nucleated Red Blood Cells % 0.1 %; Red Blood Cells 4.11 10^6/uL (4.5-5.90); White Blood Cell 9.6 10^3/uL (4.4-10.8)
[2021-10-20] MEDS: LEVOTHYROXINE SODIUM 25 MCG TAB PO SCH (07:01)
[2021-10-20] MEDS: ACCU-CHEK COMFORT CURVE STRIP VI SCH ×4 (07:02→22:00)
[2021-10-20] MEDS: InsuLIN REG 1unit/0.01ml Soln (100units/ml) SC SCH ×4 (07:04→22:39)
[2021-10-20 09:01] VITALS: BP 136/56
[2021-10-20] MEDS: POTASSIUM CHL 10 Meq TABLET PO SCH ×2 (09:34→22:11)
[2021-10-20] MEDS: FUROSEMIDE 40 MG TAB PO SCH (09:34)
[2021-10-20] MEDS: methylPREDNISolone SOD SUCC 40 MG/ML VL IV SCH (09:34)
[2021-10-20] MEDS: amLODIPine BESYLATE 5 MG TAB PO SCH (09:35)
[2021-10-20] MEDS: ALLOPURINOL 100 MG TAB PO SCH (09:36)
[2021-10-20] MEDS: METOPROLOL SUCCINATE XL 50 MG TAB PO SCH (09:36)
[2021-10-20] MEDS: INSULIN LANTUS (GLARGINE) 1 /0.01ml (100units/ml) SC SCH (12:01)
[2021-10-20 12:37] VITALS: BP 145/52
[2021-10-20 14:29] LABS: BUN/Creatinine Ratio 49.2; Calcium 9.1 mg/dL (8.5-10.1)
[2021-10-20 14:42] LABS: Potassium 2.9 mmol/L (3.5-5.1)
[2021-10-20] MEDS ORDERED: POTASSIUM CHL 10MEQ/50ML 50 ML IV ONE (15:00)
[2021-10-20 16:51] VITALS: BP 134/66
[2021-10-20] MEDS: POTASSIUM CHL 10MEQ/50ML 50 ML IV SCH ×4 (17:06→19:05)
[2021-10-20] MEDS: SENNA 8.6 MG TAB PO SCH (22:11)
[2021-10-20] MEDS: ATORVASTATIN 20 MG TAB PO SCH (22:11)
[2021-10-20 22:45] VITALS: BP 134/66
[2021-10-20 23:38] VITALS: BP 148/53
[2021-10-21] MEDS ORDERED: ONDANSETRON HCL 4 MG/2 ML VIAL IV PRN (03:00)
[2021-10-21 04:59] VITALS: BP 146/56
[2021-10-21 05:18] LABS: Basophils # (auto) 0.1 10 ^3/uL (0-0.2); Basophils % (auto) 0.6 % (0.0-2.0); Eosinophils # (auto) 0 10 ^3/uL (0-0.8); Eosinophils % (auto) 0.3 % (0.0-7.0); Hematocrit 32.8 % (41.0-53.0); Hemoglobin 10.8 g/dL (13.5-17.5); Lymphocytes # (auto) 0.4 10 ^3/uL (0.4-5.4); Lymphocytes % (auto) 4.1 % (10.0-50.0); Mean Corpuscular Hgb Conc. 32.9 g/dL (32.0-36.0); Mean Corpuscular Volume 79.1 fL (80.0-100.0); Monocytes # (auto) 0.8 10 ^3/uL (0-1.3); Monocytes % (auto) 8.7 % (0.0-12.0); Neutrophils % (auto) 86.3 % (37.0-80.0); Red Blood Cells 4.15 10^6/uL (4.5-5.90); White Blood Cell 9.2 10^3/uL (4.4-10.8)
[2021-10-21 05:35] LABS: BUN/Creatinine Ratio 49.7; Calcium 9.1 mg/dL (8.5-10.1); Magnesium 2.8 mg/dL (1.6-2.6); Potassium 3.4 mmol/L (3.5-5.1)
[2021-10-21] MEDS: ACCU-CHEK COMFORT CURVE STRIP VI SCH ×4 (06:39→22:20)
[2021-10-21] MEDS: LEVOTHYROXINE SODIUM 25 MCG TAB PO SCH (06:39)
[2021-10-21] MEDS: InsuLIN REG 1unit/0.01ml Soln (100units/ml) SC SCH ×4 (06:44→22:33)
[2021-10-21] MEDS: ALBUTEROL SULF 2.5 MG/0.5ML(0.5%) NEB SOLN NEB SCH ×3 (06:55→20:08)
[2021-10-21] MEDS: IPRATROPIUM BROM 0.5 MG/2.5ML INH SOL NEB SCH ×3 (06:55→20:08)
[2021-10-21 09:00] VITALS: BP 141/53
[2021-10-21] MEDS: methylPREDNISolone SOD SUCC 40 MG/ML VL IV SCH (09:22)
[2021-10-21] MEDS: FUROSEMIDE 40 MG TAB PO SCH (09:23)
[2021-10-21] MEDS: POTASSIUM CHL 10 Meq TABLET PO SCH ×2 (09:23→22:24)
[2021-10-21] MEDS: METOPROLOL SUCCINATE XL 50 MG TAB PO SCH (09:24)
[2021-10-21] MEDS: amLODIPine BESYLATE 5 MG TAB PO SCH (09:24)
[2021-10-21] MEDS: ALLOPURINOL 100 MG TAB PO SCH (09:25)
[2021-10-21] MEDS: INSULIN LANTUS (GLARGINE) 1 /0.01ml (100units/ml) SC SCH (11:45)
[2021-10-21 12:00] VITALS: BP 134/51
[2021-10-21 16:00] VITALS: BP 134/46
[2021-10-21 21:56] VITALS: BP 138/53
[2021-10-21] MEDS: SENNA 8.6 MG TAB PO SCH (22:23)
[2021-10-21] MEDS: ATORVASTATIN 20 MG TAB PO SCH (22:24)
[2021-10-22 05:10] VITALS: BP 137/56
[2021-10-22 06:47] LABS: Basophils # (auto) 0 10 ^3/uL (0-0.2); Eosinophils # (auto) 0.2 10 ^3/uL (0-0.8); Eosinophils % (auto) 2.3 % (0.0-7.0); Hematocrit 32.2 % (41.0-53.0); Hemoglobin 10.7 g/dL (13.5-17.5); Lymphocytes # (auto) 0.8 10 ^3/uL (0.4-5.4); Lymphocytes % (auto) 8.2 % (10.0-50.0); Mean Corpuscular Hemoglobin 26.3 pg (28.0-32.0); Mean Corpuscular Hgb Conc. 33.1 g/dL (32.0-36.0); Mean Corpuscular Volume 79.2 fL (80.0-100.0); Monocytes # (auto) 0.8 10 ^3/uL (0-1.3); Monocytes % (auto) 8.3 % (0.0-12.0); Neutrophils # (auto) 8.1 10 ^3/uL (1.6-8.6); Neutrophils % (auto) 81.2 % (37.0-80.0); Red Blood Cells 4.07 10^6/uL (4.5-5.90); Red Cell Distribution Width 19.5 % (11.8-14.3)
[2021-10-22] MEDS: IPRATROPIUM BROM 0.5 MG/2.5ML INH SOL NEB SCH ×3 (06:47→18:44)
[2021-10-22] MEDS: ALBUTEROL SULF 2.5 MG/0.5ML(0.5%) NEB SOLN NEB SCH ×3 (06:47→18:45)
[2021-10-22] MEDS: LEVOTHYROXINE SODIUM 25 MCG TAB PO SCH (07:07)
[2021-10-22] MEDS: ACCU-CHEK COMFORT CURVE STRIP VI SCH ×4 (07:20→22:15)
[2021-10-22] MEDS: InsuLIN REG 1unit/0.01ml Soln (100units/ml) SC SCH ×4 (07:28→22:14)
[2021-10-22 09:00] VITALS: BP 136/52
[2021-10-22] MEDS: FUROSEMIDE 40 MG/4 ML VIAL IV SCH (09:11)
[2021-10-22] MEDS: POTASSIUM CHL 10 Meq TABLET PO SCH ×2 (09:11→22:05)
[2021-10-22] MEDS: methylPREDNISolone SOD SUCC 40 MG/ML VL IV SCH (09:11)
[2021-10-22] MEDS: PANTOPRAZOLE 40 MG TAB PO SCH (09:12)
[2021-10-22] MEDS: amLODIPine BESYLATE 5 MG TAB PO SCH (09:12)
[2021-10-22] MEDS: METOPROLOL SUCCINATE XL 50 MG TAB PO SCH (09:12)
[2021-10-22] MEDS: ALLOPURINOL 100 MG TAB PO SCH (09:13)
[2021-10-22] MEDS: INSULIN LANTUS (GLARGINE) 1 /0.01ml (100units/ml) SC SCH (09:14)
[2021-10-22 09:38] LABS: INR 1.16 (0.9-1.15); Partial Thromboplastin Time 26.8 sec (23.6-33.0)
[2021-10-22 17:00] VITALS: BP 91/64
[2021-10-22] MEDS: ATORVASTATIN 20 MG TAB PO SCH (22:05)
[2021-10-22] MEDS: SENNA 8.6 MG TAB PO SCH (22:06)
[2021-10-22 23:04] VITALS: BP 131/61
[2021-10-23 04:54] VITALS: BP 129/59
[2021-10-23 06:09] LABS: Basophils # (auto) 0 10 ^3/uL (0-0.2); Basophils % (auto) 0.1 % (0.0-2.0); Eosinophils # (auto) 0 10 ^3/uL (0-0.8); Hemoglobin 10.3 g/dL (13.5-17.5); Monocytes # (auto) 0.7 10 ^3/uL (0-1.3); Neutrophils # (auto) 6.2 10 ^3/uL (1.6-8.6); Red Cell Distribution Width 19.4 % (11.8-14.3); White Blood Cell 7.3 10^3/uL (4.4-10.8)
[2021-10-23 06:11] LABS: Eosinophils % (auto) 0.1 % (0.0-7.0); Hematocrit 31.5 % (41.0-53.0); Lymphocytes # (auto) 0.3 10 ^3/uL (0.4-5.4); Lymphocytes % (auto) 4.5 % (10.0-50.0); Mean Corpuscular Hemoglobin 25.6 pg (28.0-32.0); Mean Corpuscular Hgb Conc. 32.8 g/dL (32.0-36.0); Mean Corpuscular Volume 78.1 fL (80.0-100.0); Monocytes % (auto) 9.4 % (0.0-12.0); Neutrophils % (auto) 85.9 % (37.0-80.0); Nucleated Red Blood Cells % 0.1 %; Red Blood Cells 4.04 10^6/uL (4.5-5.90)
[2021-10-23] MEDS: IPRATROPIUM BROM 0.5 MG/2.5ML INH SOL NEB SCH ×3 (06:19→18:54)
[2021-10-23] MEDS: ALBUTEROL SULF 2.5 MG/0.5ML(0.5%) NEB SOLN NEB SCH ×3 (06:19→18:54)
[2021-10-23] MEDS: LEVOTHYROXINE SODIUM 25 MCG TAB PO SCH (06:30)
[2021-10-23] MEDS: InsuLIN REG 1unit/0.01ml Soln (100units/ml) SC SCH ×4 (06:33→22:09)
[2021-10-23] MEDS: ACCU-CHEK COMFORT CURVE STRIP VI SCH ×4 (06:34→22:08)
[2021-10-23] MEDS: PANTOPRAZOLE 40 MG TAB PO SCH (09:39)
[2021-10-23] MEDS: FUROSEMIDE 40 MG/4 ML VIAL IV SCH (09:39)
[2021-10-23] MEDS: POTASSIUM CHL 10 Meq TABLET PO SCH ×2 (09:39→22:08)
[2021-10-23] MEDS: amLODIPine BESYLATE 5 MG TAB PO SCH (09:39)
[2021-10-23] MEDS: methylPREDNISolone SOD SUCC 40 MG/ML VL IV SCH (09:39)
[2021-10-23] MEDS: ALLOPURINOL 100 MG TAB PO SCH (09:40)
[2021-10-23] MEDS: METOPROLOL SUCCINATE XL 50 MG TAB PO SCH (09:40)
[2021-10-23] MEDS: INSULIN LANTUS (GLARGINE) 1 /0.01ml (100units/ml) SC SCH (09:43)
[2021-10-23 10:09] LABS: BUN/Creatinine Ratio 44.9; Calcium 8.5 mg/dL (8.5-10.1); Potassium 3.7 mmol/L (3.5-5.1)
[2021-10-23 13:00] VITALS: BP 122/58
[2021-10-23 17:00] VITALS: BP 130/60
[2021-10-23 22:00] VITALS: BP 138/52
[2021-10-23] MEDS: SENNA 8.6 MG TAB PO SCH (22:08)
[2021-10-23] MEDS: ATORVASTATIN 20 MG TAB PO SCH (22:08)
[2021-10-24 00:43] VITALS: BP 138/52
[2021-10-24 05:00] VITALS: BP 143/55
[2021-10-24] MEDS: LEVOTHYROXINE SODIUM 25 MCG TAB PO SCH (06:15)
[2021-10-24] MEDS: ACCU-CHEK COMFORT CURVE STRIP VI SCH ×2 (06:15→13:05)
[2021-10-24] MEDS: InsuLIN REG 1unit/0.01ml Soln (100units/ml) SC SCH ×2 (06:16→13:04)
[2021-10-24] MEDS: ALBUTEROL SULF 2.5 MG/0.5ML(0.5%) NEB SOLN NEB SCH ×2 (06:49→12:54)
[2021-10-24] MEDS: IPRATROPIUM BROM 0.5 MG/2.5ML INH SOL NEB SCH ×2 (06:49→12:54)
[2021-10-24 08:55] VITALS: BP 146/50
[2021-10-24] MEDS: methylPREDNISolone SOD SUCC 40 MG/ML VL IV SCH (09:02)
[2021-10-24] MEDS: FUROSEMIDE 40 MG/4 ML VIAL IV SCH (09:02)
[2021-10-24] MEDS: amLODIPine BESYLATE 5 MG TAB PO SCH (09:03)
[2021-10-24] MEDS: POTASSIUM CHL 10 Meq TABLET PO SCH (09:03)
[2021-10-24] MEDS: INSULIN LANTUS (GLARGINE) 1 /0.01ml (100units/ml) SC SCH (09:04)
[2021-10-24] MEDS: PANTOPRAZOLE 40 MG TAB PO SCH (09:05)
[2021-10-24] MEDS: ALLOPURINOL 100 MG TAB PO SCH (09:05)
[2021-10-24] MEDS: METOPROLOL SUCCINATE XL 50 MG TAB PO SCH (09:05)
[2021-10-24 13:00] VITALS: BP 134/49
[2021-10-24 17:00] VITALS: BP 131/53
== END 2021-10-24 18:00 | DRG 291 ==
LOC: ER 11:20 → TELE 17:29 → TELE-WESTW 20:30 → ICU WEST 10-14 23:40 → TELE-WESTW 10-16 14:55
PROVIDERS: ADMIT Internal Medicine; ATTEND Hospitalist
PROC: 0W9B3ZZ Drainage of Left Pleural Cavity, Percutaneous Approach (ICD-10-PCS; principal; 2021-10-12)
PROC: 5A0935A Assistance with Respiratory Ventilation, Less than 24 Consecutive Hours, High Flow/Velocity Cannula (ICD-10-PCS; 2021-10-13)
PROC: 0W993ZZ Drainage of Right Pleural Cavity, Percutaneous Approach (ICD-10-PCS; 2021-10-15)
PROC: 0W9B3ZZ Drainage of Left Pleural Cavity, Percutaneous Approach (ICD-10-PCS; 2021-10-16)
PROC: 0W9B3ZZ Drainage of Left Pleural Cavity, Percutaneous Approach (ICD-10-PCS; 2021-10-22)
DX: I13.0 Hypertensive heart and chronic kidney disease with heart failure and stage 1 through stage 4 chronic kidney disease, or unspecified chronic kidney disease (principal); I50.33 Acute on chronic diastolic (congestive) heart failure; N17.0 Acute kidney failure with tubular necrosis; J96.22 Acute and chronic respiratory failure with hypercapnia; J44.1 Chronic obstructive pulmonary disease with (acute) exacerbation; N18.4 Chronic kidney disease, stage 4 (severe); N39.0 Urinary tract infection, site not specified; J98.11 Atelectasis; Z68.41 Body mass index [BMI] 40.0-44.9, adult; E87.1 Hypo-osmolality and hyponatremia; J91.8 Pleural effusion in other conditions classified elsewhere; E88.09 Other disorders of plasma-protein metabolism, not elsewhere classified; D63.1 Anemia in chronic kidney disease; E11.65 Type 2 diabetes mellitus with hyperglycemia; E66.01 Morbid (severe) obesity due to excess calories; E03.9 Hypothyroidism, unspecified; Z20.822 Contact with and (suspected) exposure to COVID-19; M10.9 Gout, unspecified; E11.22 Type 2 diabetes mellitus with diabetic chronic kidney disease; E78.5 Hyperlipidemia, unspecified; Z82.49 Family history of ischemic heart disease and other diseases of the circulatory system; Z80.3 Family history of malignant neoplasm of breast; Z79.84 Long term (current) use of oral hypoglycemic drugs
CPT/HCPCS: 36415; 36600; 71045; 71046; 71250; 76604; 76775; 76942; 80048; 80053; 81001; 82570; 82805; 82962; 83615; 83735; 83880; 83986; 84156; 84300; 84443; 84484; 85025; 85379; 85610; 85730; 87070; 87081; 87205; 87426; 89051; 93005; 93306; 93970; 94640; 96361; 96374; 96375; 97110; 97116; 97163; 97530; G0378; J1815; J2405

== ENCOUNTER → 2022-09-18 | Outpatient (CLI) | payer OTHER ==
[~2022-09-18] MED LIST: ALLO100T PO; AML5T PO; ASPI1TAB20 PO; ATOR20TA50 PO; BRIM0.2S17 EACHEYE; CHOL20007 PO; DORZ2SOL18 EACHEYE; FURO40TA4 PO; INSUINJ2 SC; LEVO25TA6 PO; METO-6 PO; METO5TAB5 PO; POTA-167 PO; TRAM50TA2 PO
[2022-09-18 09:27] LABS: Urine WBC None Seen /hpf (0 - 3)
[2022-09-18 09:35] LABS: Basophils # (auto) 0 10 ^3/uL (0-0.2); Basophils % (auto) 0.5 % (0.0-2.0); Eosinophils # (auto) 0.7 10 ^3/uL (0-0.8); Eosinophils % (auto) 7.8 % (0.0-7.0); Hematocrit 36.7 % (41.0-53.0); Hemoglobin 12.2 g/dL (13.5-17.5); Lymphocytes % (auto) 10.8 % (10.0-50.0); Mean Corpuscular Hemoglobin 28.5 pg (28.0-32.0); Mean Corpuscular Hgb Conc. 33.1 g/dL (32.0-36.0); Mean Corpuscular Volume 86.1 fL (80.0-100.0); Monocytes # (auto) 0.8 10 ^3/uL (0-1.3); Neutrophils # (auto) 6.7 10 ^3/uL (1.6-8.6); Neutrophils % (auto) 71.9 % (37.0-80.0); Red Blood Cells 4.27 10^6/uL (4.5-5.90); Red Cell Distribution Width 16.7 % (11.8-14.3); White Blood Cell 9.3 10^3/uL (4.4-10.8)
[2022-09-18 09:39] LABS: Urine Bacteria NONE SEEN /hpf (None Seen); Urine Blood Negative /uL (Negative); Urine Hyaline Cast FEW /lpf (0 - 2); Urine Specific Gravity 1.012 (1.001-1.035)
[2022-09-18 10:04] LABS: Albumin 3.4 g/dL (3.4-5.0); Calcium 9.1 mg/dL (8.5-10.1); Potassium 4.8 mmol/L (3.5-5.1)
[2022-09-18 10:06] LABS: BUN/Creatinine Ratio 24.3; Uric Acid 5.1 mg/dL (3.5-7.2)
[2022-09-18 10:09] LABS: Protein, Urine 200.7 mg/dL (0.0-11.9)
== END | disposition home or self-care (01) ==
LOC: LAB 09:10
PROVIDERS: ATTEND Student in an Organized Health Care Education/Training Program
DX: N18.30 Chronic kidney disease, stage 3 unspecified (principal); E11.21 Type 2 diabetes mellitus with diabetic nephropathy; D63.1 Anemia in chronic kidney disease; N39.0 Urinary tract infection, site not specified; R80.9 Proteinuria, unspecified; E21.3 Hyperparathyroidism, unspecified; M10.9 Gout, unspecified; E55.9 Vitamin D deficiency, unspecified
CPT/HCPCS: 36415; 80069; 81001; 82306; 82570; 83970; 84156; 84550; 85025

== ENCOUNTER → 2022-10-02 | Outpatient (CLI) | payer OTHER ==
[2022-10-02 09:33] LABS: Basophils # (auto) 0.1 10 ^3/uL (0-0.2); Basophils % (auto) 0.6 % (0.0-2.0); Eosinophils # (auto) 0.8 10 ^3/uL (0-0.8); Eosinophils % (auto) 9.1 % (0.0-7.0); Hematocrit 36.2 % (41.0-53.0); Hemoglobin 12.1 g/dL (13.5-17.5); Lymphocytes # (auto) 1.1 10 ^3/uL (0.4-5.4); Lymphocytes % (auto) 12.5 % (10.0-50.0); Mean Corpuscular Hemoglobin 28.7 pg (28.0-32.0); Mean Corpuscular Hgb Conc. 33.5 g/dL (32.0-36.0); Mean Corpuscular Volume 85.9 fL (80.0-100.0); Monocytes # (auto) 0.9 10 ^3/uL (0-1.3); Neutrophils % (auto) 67.8 % (37.0-80.0); Nucleated Red Blood Cells % 0.1 %; Red Blood Cells 4.21 10^6/uL (4.5-5.90); Red Cell Distribution Width 16.3 % (11.8-14.3); White Blood Cell 8.8 10^3/uL (4.4-10.8)
[2022-10-02 09:45] LABS: Urine Bacteria NONE SEEN /hpf (None Seen); Urine Blood Negative /uL (Negative); Urine Hyaline Cast FEW /lpf (0 - 2); Urine WBC <1 /hpf (0 - 3)
[2022-10-02 11:14] LABS: Calcium 9.2 mg/dL (8.5-10.1); Magnesium 2.1 mg/dL (1.6-2.6); Potassium 4.9 mmol/L (3.5-5.1); Uric Acid 5.9 mg/dL (3.5-7.2)
[2022-10-02 11:25] LABS: Folate (Folic Acid) 6.35 ng/mL (5.38-24)
[2022-10-02 11:26] LABS: Albumin 3.4 g/dL (3.4-5.0); BUN/Creatinine Ratio 24.4; Bilirubin, Total 0.2 mg/dL (0.2-1.0)
== END | disposition home or self-care (01) ==
LOC: LAB 09:09
PROVIDERS: ATTEND Nurse Practitioner Family
DX: E11.9 Type 2 diabetes mellitus without complications (principal); J44.9 Chronic obstructive pulmonary disease, unspecified; I10 Essential (primary) hypertension; R06.02 Shortness of breath; Z68.29 Body mass index [BMI] 29.0-29.9, adult
CPT/HCPCS: 36415; 80053; 80061; 81001; 82306; 82607; 82746; 83036; 83735; 84443; 84550; 85025; 87086

== ENCOUNTER → 2022-11-12 | Outpatient (CLI) | payer OTHER ==
[2022-11-12 08:41] LABS: Basophils # (auto) 0 10 ^3/uL (0-0.2); Basophils % (auto) 0.4 % (0.0-2.0); Eosinophils # (auto) 0.6 10 ^3/uL (0-0.8); Eosinophils % (auto) 6.9 % (0.0-7.0); Hematocrit 35.8 % (41.0-53.0); Hemoglobin 12.1 g/dL (13.5-17.5); Lymphocytes # (auto) 1.1 10 ^3/uL (0.4-5.4); Lymphocytes % (auto) 12.4 % (10.0-50.0); Mean Corpuscular Hemoglobin 29.4 pg (28.0-32.0); Mean Corpuscular Hgb Conc. 33.8 g/dL (32.0-36.0); Monocytes # (auto) 0.9 10 ^3/uL (0-1.3); Monocytes % (auto) 9.9 % (0.0-12.0); Neutrophils # (auto) 6.1 10 ^3/uL (1.6-8.6); Neutrophils % (auto) 70.4 % (37.0-80.0); Nucleated Red Blood Cells % 0.1 %; Red Blood Cells 4.12 10^6/uL (4.5-5.90); Red Cell Distribution Width 15.9 % (11.8-14.3); White Blood Cell 8.7 10^3/uL (4.4-10.8)
[2022-11-12 09:01] LABS: Urine Bacteria NONE SEEN /hpf (None Seen); Urine Blood Negative /uL (Negative); Urine Specific Gravity 1.009 (1.001-1.035); Urine WBC <1 /hpf (0 - 3)
[2022-11-12 09:32] LABS: Albumin 3.3 g/dL (3.4-5.0); Calcium 9.1 mg/dL (8.5-10.1); Magnesium 2.4 mg/dL (1.6-2.6); Potassium 4.4 mmol/L (3.5-5.1)
[2022-11-12 09:36] LABS: BUN/Creatinine Ratio 25.3 (10.0-20.0); Bilirubin, Total 0.3 mg/dL (0.2-1.0); Phosphorus 3.1 mg/dL (2.5-4.90); Total Protein 8.2 g/dL (6.4-8.2)
== END | disposition home or self-care (01) ==
LOC: LAB 08:28
PROVIDERS: ATTEND Student in an Organized Health Care Education/Training Program
DX: N18.31 Chronic kidney disease, stage 3a (principal); E21.3 Hyperparathyroidism, unspecified; E61.2 Magnesium deficiency; R82.90 Unspecified abnormal findings in urine; D63.1 Anemia in chronic kidney disease
CPT/HCPCS: 36415; 80053; 81001; 83735; 83970; 84100; 85025

== ENCOUNTER → 2022-12-10 | Outpatient (CLI) | payer OTHER ==
[2022-12-10 08:46] LABS: Basophils # (auto) 0 10 ^3/uL (0-0.2); Basophils % (auto) 0.6 % (0.0-2.0); Eosinophils # (auto) 0.6 10 ^3/uL (0-0.8); Eosinophils % (auto) 7.7 % (0.0-7.0); Hematocrit 33.5 % (41.0-53.0); Hemoglobin 11.2 g/dL (13.5-17.5); Lymphocytes # (auto) 0.8 10 ^3/uL (0.4-5.4); Lymphocytes % (auto) 11.3 % (10.0-50.0); Mean Corpuscular Hemoglobin 29.4 pg (28.0-32.0); Mean Corpuscular Hgb Conc. 33.5 g/dL (32.0-36.0); Mean Corpuscular Volume 87.8 fL (80.0-100.0); Monocytes # (auto) 0.9 10 ^3/uL (0-1.3); Monocytes % (auto) 12.2 % (0.0-12.0); Neutrophils % (auto) 68.2 % (37.0-80.0); Red Blood Cells 3.81 10^6/uL (4.5-5.90); Red Cell Distribution Width 15.6 % (11.8-14.3); White Blood Cell 7.3 10^3/uL (4.4-10.8)
[2022-12-10 09:11] LABS: Urine Bacteria NONE SEEN /hpf (None Seen); Urine Blood Negative /uL (Negative); Urine Specific Gravity 1.014 (1.001-1.035); Urine WBC 1 /hpf (0 - 3)
[2022-12-10 11:02] LABS: Potassium 4.5 mmol/L (3.5-5.1)
[2022-12-10 11:54] LABS: BUN/Creatinine Ratio 22.7 (10.0-20.0); Calcium 8.9 mg/dL (8.5-10.1); Total Protein 7.5 g/dL (6.4-8.2)
[2022-12-10 12:02] LABS: Bilirubin, Total 0.4 mg/dL (0.2-1.0)
== END | disposition home or self-care (01) ==
LOC: LAB 08:27
PROVIDERS: ATTEND Student in an Organized Health Care Education/Training Program
DX: E11.22 Type 2 diabetes mellitus with diabetic chronic kidney disease (principal); N18.31 Chronic kidney disease, stage 3a; D63.1 Anemia in chronic kidney disease; R82.90 Unspecified abnormal findings in urine; R80.9 Proteinuria, unspecified
CPT/HCPCS: 36415; 80053; 81001; 82570; 83036; 84156; 85025

== ENCOUNTER → 2023-01-01 | Outpatient (CLI) | payer OTHER | END | disposition home or self-care (01) | LOC: LAB 13:44 | PROVIDERS: ATTEND Internal Medicine | DX: Z12.11 Encounter for screening for malignant neoplasm of colon (principal) | CPT/HCPCS: 82270 ==

== ENCOUNTER → 2023-03-12 | Outpatient (CLI) | payer OTHER ==
[~2023-03-12] MED LIST changes: -POTA-167 PO; +POTA-211 PO
[2023-03-12 08:09] LABS: Basophils # (auto) 0 10 ^3/uL (0-0.2); Basophils % (auto) 0.2 % (0.0-2.0); Eosinophils # (auto) 0.4 10 ^3/uL (0-0.8); Eosinophils % (auto) 4.9 % (0.0-7.0); Hematocrit 37.7 % (41.0-53.0); Hemoglobin 12.4 g/dL (13.5-17.5); Lymphocytes # (auto) 0.8 10 ^3/uL (0.4-5.4); Lymphocytes % (auto) 9.6 % (10.0-50.0); Mean Corpuscular Hemoglobin 28.5 pg (28.0-32.0); Mean Corpuscular Hgb Conc. 32.8 g/dL (32.0-36.0); Mean Corpuscular Volume 86.9 fL (80.0-100.0); Monocytes # (auto) 0.9 10 ^3/uL (0-1.3); Monocytes % (auto) 10.1 % (0.0-12.0); Neutrophils # (auto) 6.5 10 ^3/uL (1.6-8.6); Neutrophils % (auto) 75.2 % (37.0-80.0); Red Blood Cells 4.33 10^6/uL (4.5-5.90); Red Cell Distribution Width 16.6 % (11.8-14.3); White Blood Cell 8.6 10^3/uL (4.4-10.8)
[2023-03-12 08:10] LABS: Urine Bacteria NONE SEEN /hpf (None Seen); Urine Blood TRACE /uL (Negative); Urine Specific Gravity 1.011 (1.001-1.035); Urine WBC <1 /hpf (0 - 3)
[2023-03-12 08:29] LABS: % Iron Saturation 33.8 % (20-55)
[2023-03-12 08:38] LABS: Albumin 2.7 g/dL (3.4-5.0); Calcium 8.3 mg/dL (8.5-10.1); Magnesium 2.3 mg/dL (1.6-2.6); Potassium 4.5 mmol/L (3.5-5.1); Uric Acid 5.7 mg/dL (3.5-7.2)
[2023-03-12 08:42] LABS: Protein, Urine 486.7 mg/dL (0.0-11.9)
[2023-03-12 08:43] LABS: BUN/Creatinine Ratio 14.5 (10.0-20.0); Bilirubin, Total 0.5 mg/dL (0.2-1.0); Phosphorus 3.2 mg/dL (2.5-4.90)
[2023-03-12 09:09] LABS: Ferritin 170.8 ng/mL (10-322)
[2023-03-12 09:10] LABS: Folate (Folic Acid) 9.91 ng/mL (5.38-24)
[2023-03-12 09:42] LABS: Creatinine, Urine 58.1 mg/dL (30.0-125.0)
== END | disposition home or self-care (01) ==
LOC: LAB 07:23
PROVIDERS: ATTEND Student in an Organized Health Care Education/Training Program
DX: N18.4 Chronic kidney disease, stage 4 (severe) (principal); E78.41 Elevated Lipoprotein(a); R68.84 Jaw pain; R73.09 Other abnormal glucose; E61.2 Magnesium deficiency; R94.6 Abnormal results of thyroid function studies; D51.9 Vitamin B12 deficiency anemia, unspecified; R82.991 Hypocitraturia; R82.79 Other abnormal findings on microbiological examination of urine; R82.90 Unspecified abnormal findings in urine; E79.0 Hyperuricemia without signs of inflammatory arthritis and tophaceous disease; E55.9 Vitamin D deficiency, unspecified; D63.1 Anemia in chronic kidney disease; R80.9 Proteinuria, unspecified; E21.3 Hyperparathyroidism, unspecified
CPT/HCPCS: 36415; 80053; 80061; 81001; 82043; 82306; 82570; 82607; 82728; 82746; 83036; 83540; 83550; 83735; 83970; 84100; 84156; 84443; 84550; 85025; 87086

== ENCOUNTER → 2023-06-11 | Outpatient (CLI) | payer OTHER ==
[2023-06-11 07:24] LABS: Basophils # (auto) 0.1 10 ^3/uL (0-0.2); Basophils % (auto) 0.9 % (0.0-2.0); Eosinophils # (auto) 0.5 10 ^3/uL (0-0.8); Eosinophils % (auto) 5.6 % (0.0-7.0); Hematocrit 36.8 % (41.0-53.0); Hemoglobin 12.1 g/dL (13.5-17.5); Lymphocytes % (auto) 10.7 % (10.0-50.0); Mean Corpuscular Hemoglobin 27.9 pg (28.0-32.0); Mean Corpuscular Hgb Conc. 32.9 g/dL (32.0-36.0); Mean Corpuscular Volume 84.7 fL (80.0-100.0); Monocytes # (auto) 0.8 10 ^3/uL (0-1.3); Monocytes % (auto) 8.7 % (0.0-12.0); Neutrophils # (auto) 7.1 10 ^3/uL (1.6-8.6); Neutrophils % (auto) 74.1 % (37.0-80.0); Nucleated Red Blood Cells % 0.1 %; Red Blood Cells 4.34 10^6/uL (4.5-5.90); Red Cell Distribution Width 18.2 % (11.8-14.3); White Blood Cell 9.6 10^3/uL (4.4-10.8)
[2023-06-11 07:50] LABS: Urine Bacteria NONE SEEN /hpf (None Seen); Urine Blood TRACE /uL (Negative); Urine Clarity Clear (Clear); Urine Color Colorless (Yellow); Urine Protein, UAD 3+ (Negative); Urine Specific Gravity 1.013 (1.001-1.035); Urine Urobilinogen Normal (Negative); Urine WBC 1 /hpf (0 - 3)
[2023-06-11 08:07] LABS: Alanine Aminotransferase 13 U/L (7-40); Albumin 3.7 g/dL (3.2-4.8); Alkaline Phosphatase 74 U/L (46-116); Anion Gap 7 (5-15); Aspartate Aminotransferase 11 U/L (13-40); BUN/Creatinine Ratio 12.1 (10.0-20.0); Blood Urea Nitrogen 42 mg/dL (9-23); Calcium 8.9 mg/dL (8.5-10.1); Carbon Dioxide 22 mmol/L (20-30); Chloride 108 mmol/L (98-107); Glucose 109 mg/dL (74-106); Potassium 4.8 mmol/L (3.5-5.1); Sodium 137 mmol/L (136-145)
[2023-06-11 08:08] LABS: Bilirubin, Total 0.5 mg/dL (0.2-1.0); Phosphorus 4.1 mg/dL (2.4-5.1); Total Protein 7.3 g/dL (5.7-8.2)
[2023-06-11 08:34] LABS: Creatinine, Urine 45.32 mg/dL (30.0-125.0)
[2023-06-11 08:39] LABS: Protein, Urine 532.3 mg/dL (0.0-11.9); Urine Protein/Creatinine Ratio 11.75
[2023-06-11 11:51] LABS: Magnesium 1.8 mg/dL (1.6-2.6)
== END | disposition home or self-care (01) ==
LOC: LAB 07:01
PROVIDERS: ATTEND Student in an Organized Health Care Education/Training Program
DX: N18.30 Chronic kidney disease, stage 3 unspecified (principal); D63.1 Anemia in chronic kidney disease; M10.9 Gout, unspecified; E83.39 Other disorders of phosphorus metabolism; E61.2 Magnesium deficiency; R82.90 Unspecified abnormal findings in urine; R80.9 Proteinuria, unspecified
CPT/HCPCS: 36415; 80053; 81001; 82306; 82570; 83735; 83970; 84100; 84156; 84550; 85025

== ENCOUNTER → 2023-07-22 | Outpatient (CLI) | payer OTHER ==
[2023-07-22 08:33] LABS: Basophils # (auto) 0.1 10 ^3/uL (0-0.2); Basophils % (auto) 0.7 % (0.0-2.0); Eosinophils # (auto) 0.7 10 ^3/uL (0-0.8); Hemoglobin 12.4 g/dL (13.5-17.5); Lymphocytes # (auto) 0.9 10 ^3/uL (0.4-5.4); Lymphocytes % (auto) 8.3 % (10.0-50.0); Mean Corpuscular Hemoglobin 27.5 pg (28.0-32.0); Mean Corpuscular Hgb Conc. 32.7 g/dL (32.0-36.0); Mean Corpuscular Volume 83.9 fL (80.0-100.0); Monocytes # (auto) 0.8 10 ^3/uL (0-1.3); Monocytes % (auto) 7.2 % (0.0-12.0); Neutrophils # (auto) 8.4 10 ^3/uL (1.6-8.6); Neutrophils % (auto) 77.8 % (37.0-80.0); Red Blood Cells 4.53 10^6/uL (4.5-5.90); Red Cell Distribution Width 18.5 % (11.8-14.3); White Blood Cell 10.8 10^3/uL (4.4-10.8)
[2023-07-22 08:57] LABS: Urine Bacteria FEW /hpf (None Seen); Urine Blood 1+ /uL (Negative); Urine Clarity Clear (Clear); Urine Color Yellow (Yellow); Urine Protein, UAD 3+ (Negative); Urine Urobilinogen Normal (Negative); Urine WBC 1 /hpf (0 - 3); Urine pH 6.5 (5.0-8.0)
[2023-07-22 09:08] LABS: Alanine Aminotransferase 12 U/L (7-40); Alkaline Phosphatase 62 U/L (46-116); Anion Gap 7 (5-15); BUN/Creatinine Ratio 14.9 (10.0-20.0); Blood Urea Nitrogen 52 mg/dL (9-23); Calcium 8.8 mg/dL (8.5-10.1); Carbon Dioxide 23 mmol/L (20-30); Chloride 106 mmol/L (98-107); Glucose 169 mg/dL (74-106); Potassium 5.1 mmol/L (3.5-5.1); Sodium 136 mmol/L (136-145)
[2023-07-22 09:09] LABS: Albumin 3.7 g/dL (3.2-4.8); Aspartate Aminotransferase 16 U/L (13-40); Bilirubin, Total 0.4 mg/dL (0.2-1.0); Phosphorus 4.2 mg/dL (2.4-5.1)
[2023-07-22 09:52] LABS: Creatinine, Urine 93.54 mg/dL (30.0-125.0)
[2023-07-22 09:56] LABS: Urine Protein/Creatinine Ratio 12.69
== END | disposition home or self-care (01) ==
LOC: LAB 08:10
PROVIDERS: ATTEND Student in an Organized Health Care Education/Training Program
DX: N18.31 Chronic kidney disease, stage 3a (principal); D63.1 Anemia in chronic kidney disease; R80.9 Proteinuria, unspecified; R82.90 Unspecified abnormal findings in urine; E21.3 Hyperparathyroidism, unspecified
CPT/HCPCS: 36415; 80053; 81001; 82570; 83970; 84100; 84156; 85025

== ENCOUNTER → 2023-07-23 | Outpatient (CLI) | payer OTHER ==
[2023-07-23 07:19] LABS: Urine Bacteria NONE SEEN /hpf (None Seen); Urine Blood TRACE /uL (Negative); Urine Clarity Clear (Clear); Urine Color Straw (Yellow); Urine Protein, UAD 3+ (Negative); Urine Specific Gravity 1.012 (1.001-1.035); Urine Urobilinogen Normal (Negative); Urine WBC <1 /hpf (0 - 3)
[2023-07-23 07:22] LABS: Basophils # (auto) 0.1 10 ^3/uL (0-0.2); Basophils % (auto) 1.5 % (0.0-2.0); Eosinophils # (auto) 0.6 10 ^3/uL (0-0.8); Eosinophils % (auto) 6.2 % (0.0-7.0); Hematocrit 37.4 % (41.0-53.0); Hemoglobin 12.2 g/dL (13.5-17.5); Lymphocytes # (auto) 1.1 10 ^3/uL (0.4-5.4); Lymphocytes % (auto) 10.7 % (10.0-50.0); Mean Corpuscular Hemoglobin 27.6 pg (28.0-32.0); Mean Corpuscular Hgb Conc. 32.7 g/dL (32.0-36.0); Mean Corpuscular Volume 84.5 fL (80.0-100.0); Monocytes # (auto) 0.9 10 ^3/uL (0-1.3); Monocytes % (auto) 9.5 % (0.0-12.0); Neutrophils # (auto) 7.1 10 ^3/uL (1.6-8.6); Neutrophils % (auto) 72.1 % (37.0-80.0); Red Blood Cells 4.43 10^6/uL (4.5-5.90); Red Cell Distribution Width 19.2 % (11.8-14.3); White Blood Cell 9.9 10^3/uL (4.4-10.8)
[2023-07-23 07:59] LABS: Alanine Aminotransferase 13 U/L (7-40); Albumin 3.8 g/dL (3.2-4.8); Alkaline Phosphatase 76 U/L (46-116); Anion Gap 7 (5-15); Aspartate Aminotransferase 18 U/L (13-40); BUN/Creatinine Ratio 13.8 (10.0-20.0); Blood Urea Nitrogen 47 mg/dL (9-23); Calcium 9.1 mg/dL (8.5-10.1); Carbon Dioxide 23 mmol/L (20-30); Chloride 108 mmol/L (98-107); LDL Cholesterol 55 mg/dL (< 100); Potassium 4.9 mmol/L (3.5-5.1); Sodium 138 mmol/L (136-145); Triglycerides 119 mg/dL (< 150)
[2023-07-23 08:00] LABS: Bilirubin, Total 0.3 mg/dL (0.2-1.0); Cholesterol 121 mg/dL (< 200); HDL Cholesterol 43 mg/dL (40-59); Total Protein 7.2 g/dL (5.7-8.2)
[2023-07-23 08:03] LABS: Folate (Folic Acid) 9.33 ng/mL (>5.38)
[2023-07-23 08:06] LABS: Glucose 63 mg/dL (74-106)
[2023-07-23 09:16] LABS: Magnesium 1.9 mg/dL (1.6-2.6)
== END | disposition home or self-care (01) ==
LOC: LAB 06:44
PROVIDERS: ATTEND Internal Medicine
DX: E61.2 Magnesium deficiency (principal); R78.89 Finding of other specified substances, not normally found in blood; E78.41 Elevated Lipoprotein(a); R68.89 Other general symptoms and signs; R94.6 Abnormal results of thyroid function studies; E79.0 Hyperuricemia without signs of inflammatory arthritis and tophaceous disease; R82.991 Hypocitraturia; E85.9 Amyloidosis, unspecified; R82.79 Other abnormal findings on microbiological examination of urine; R82.90 Unspecified abnormal findings in urine; D51.9 Vitamin B12 deficiency anemia, unspecified
CPT/HCPCS: 36415; 80053; 80061; 81001; 82306; 82607; 82746; 83036; 83735; 84443; 84550; 85025; 87086

== ENCOUNTER → 2023-09-23 | Outpatient (CLI) | payer OTHER ==
[2023-09-23 09:57] LABS: Urine Bacteria NONE SEEN /hpf (None Seen); Urine Blood 1+ /uL (Negative); Urine Clarity Clear (Clear); Urine Protein, UAD 3+ (Negative); Urine Specific Gravity 1.012 (1.001-1.035); Urine Urobilinogen Normal (Negative); Urine WBC <1 /hpf (0 - 3); Urine pH 7.5 (5.0-8.0)
[2023-09-23 10:04] LABS: Urine Color Straw (Yellow)
[2023-09-23 10:07] LABS: Basophils # (auto) 0.1 10 ^3/uL (0-0.2); Eosinophils # (auto) 0.4 10 ^3/uL (0-0.8); Eosinophils % (auto) 5.5 % (0.0-7.0); Hematocrit 37.5 % (41.0-53.0); Hemoglobin 12.5 g/dL (13.5-17.5); Lymphocytes # (auto) 0.3 10 ^3/uL (0.4-5.4); Lymphocytes % (auto) 4.9 % (10.0-50.0); Mean Corpuscular Hemoglobin 28.2 pg (28.0-32.0); Mean Corpuscular Hgb Conc. 33.2 g/dL (32.0-36.0); Mean Corpuscular Volume 84.8 fL (80.0-100.0); Monocytes # (auto) 0.9 10 ^3/uL (0-1.3); Monocytes % (auto) 13.3 % (0.0-12.0); Neutrophils # (auto) 4.9 10 ^3/uL (1.6-8.6); Neutrophils % (auto) 75.3 % (37.0-80.0); Nucleated Red Blood Cells % 0.1 %; Red Blood Cells 4.42 10^6/uL (4.5-5.90); Red Cell Distribution Width 19.5 % (11.8-14.3); White Blood Cell 6.6 10^3/uL (4.4-10.8)
[2023-09-23 10:31] LABS: Alanine Aminotransferase 12 U/L (7-40); Alkaline Phosphatase 78 U/L (46-116); Anion Gap 6 (5-15); Calcium 9.3 mg/dL (8.5-10.1); Carbon Dioxide 24 mmol/L (20-30); Chloride 108 mmol/L (98-107); Glucose 57 mg/dL (74-106); Sodium 138 mmol/L (136-145)
[2023-09-23 10:32] LABS: BUN/Creatinine Ratio 10.4 (10.0-20.0); Blood Urea Nitrogen 42 mg/dL (9-23); LDL Cholesterol 53 mg/dL (< 100); Triglycerides 109 mg/dL (< 150)
[2023-09-23 10:33] LABS: Albumin 3.9 g/dL (3.2-4.8); Aspartate Aminotransferase 16 U/L (13-40); Cholesterol 130 mg/dL (< 200); HDL Cholesterol 51 mg/dL (40-59)
[2023-09-23 10:34] LABS: Bilirubin, Total 0.6 mg/dL (0.2-1.0); Phosphorus 3.7 mg/dL (2.4-5.1)
[2023-09-23 10:40] LABS: Folate (Folic Acid) 10.76 ng/mL (>5.38)
[2023-09-23 11:11] LABS: Uric Acid 5.4 mg/dL (3.7-9.2)
[2023-09-23 11:12] LABS: Magnesium 1.9 mg/dL (1.6-2.6)
== END | disposition home or self-care (01) ==
LOC: LAB 09:15
PROVIDERS: ATTEND Internal Medicine
DX: E11.22 Type 2 diabetes mellitus with diabetic chronic kidney disease (principal); N18.30 Chronic kidney disease, stage 3 unspecified; R80.9 Proteinuria, unspecified; E21.3 Hyperparathyroidism, unspecified; E11.21 Type 2 diabetes mellitus with diabetic nephropathy; E55.9 Vitamin D deficiency, unspecified; D63.1 Anemia in chronic kidney disease; N39.0 Urinary tract infection, site not specified; R78.89 Finding of other specified substances, not normally found in blood; E78.9 Disorder of lipoprotein metabolism, unspecified; R68.89 Other general symptoms and signs; E61.2 Magnesium deficiency; R94.6 Abnormal results of thyroid function studies; E79.0 Hyperuricemia without signs of inflammatory arthritis and tophaceous disease; R82.991 Hypocitraturia; E85.9 Amyloidosis, unspecified; R82.90 Unspecified abnormal findings in urine; R82.79 Other abnormal findings on microbiological examination of urine; D51.9 Vitamin B12 deficiency anemia, unspecified
CPT/HCPCS: 36415; 80053; 80061; 81001; 82306; 82607; 82746; 83036; 83735; 83970; 84100; 84443; 84550; 85025; 86706; 87086; 87340